=== PATIENT | female | born 1985 | race Caucasian/White ===

== ENCOUNTER 2016-11-28 23:35 | Emergency (ER) | payer SELFPAY ==
[~2016-11-28] VITALS: Ht 162.6 cm; Wt 99.8 kg
[2016-11-29 00:05] VITALS: BP 142/87
--- NOTE | 2016-11-29 00:31 | PHYS DOC ---
Past Medical History Past Medical History: Other Additional Past Medical Histor: ADD Past Surgical History: Cholecystectomy Additional Information: 1 PACK/DAY Alcohol Use: None Drug Use: None Adult General Chief Complaint Chief Complaint: WRIST PAIN HPI HPI Patient is a 31 year old female who presents with right forearm pain starting yesterday. The patient was carrying a laundry basket and hit her arm on an open drawer walking past. She denies any numbness or tingling in the hand. She reports a recent fracture of the ulna in the similar area to her current pain. She took ibuprofen at 1600 today. She does not have a PCP. Review of Systems Review of Systems Constitutional: Denies fever or chills. [] Musculoskeletal: Denies back pain or joint pain. Reports pain and swelling in the right forearm. Integument: Denies rash or skin lesions. Reports abrasion and ecchymosis in the right forearm. Neurologic: Denies focal weakness or sensory changes. [] Current Medications Current Medications Current Medications Medications (Trade) Dose Ordered Sig/[facility] Start Time Stop Time Status Last Admin Dose Admin Ibuprofen (Motrin) 600 mg 1X ONCE 11/29/16 00:45 11/29/16 00:45 DC 11/29/16 00:43 600 MG Allergies Allergies Allergies Coded Allergies Type Severity Reaction Last Updated Verified No Known Drug Allergies 11/28/16 No Physical Exam Physical Exam Constitutional: Well developed, well nourished, no acute distress, non-toxic appearance. [] HENT: Normocephalic, atraumatic, oropharynx moist. [] Eyes: PERRLA, EOMI, conjunctiva normal, no discharge. [] Skin: Warm, dry, no erythema, no rash. Small abrasion and ecchymosis over the right mid forearm on the ulnar side. Extremities: Right mid-forearm arm tenderness, ROM intact, minimal edema. 2+ radial and ulnar pulses. Less than 2 second capillary refill in the fingers. Light touch sensation intact in the fingers. There is no tenderness in the elbow or wrist. Neurologic: Alert and oriented X 3, normal motor function, normal sensory function, no focal deficits noted. [] Psychologic: Affect normal, judgement normal, mood normal. [] Current Patient Data Vital Signs Vital Signs Date Time Temp Pulse Resp B/P Pulse Ox O2 Delivery O2 Flow Rate FiO2 11/29/16 00:05 97.9 70 18 99 Room Air 97.9 EKG EKG [] Radiology/Procedures Radiology/Procedures Two-view x-ray of the right forearm reviewed and interpreted by myself with Dr. Menjivar. There are no acute fractures or dislocations. Course & Med Decision Making Course & Med Decision Making Pertinent Labs and Imaging studies reviewed. (See chart for details) The patient is discharged home with an Hossein wrap. She is instructed to apply ice. She is given contact information for orthopedics for follow-up. Return precautions were discussed. She verbalizes understanding and agrees with plan. Dragon Disclaimer Dragon Disclaimer This electronic medical record was generated, in whole or in part, using a voice recognition dictation system. Departure Departure Impression: Primary Impression: Forearm contusion Disposition: HOME, SELF-CARE Condition: STABLE Referrals: DANIEL LORENZANA MD Patient Instructions: Contusion, [id number] Additional Instructions: There were no broken bones seen on your x-ray. Please wear the provided Hossein wrap to help with pain and swelling. You may apply ice to help decrease pain, swelling, and bruising. Do not apply ice directly to the skin. Please follow-up with the orthopedic doctor listed below if your pain continues. Return to the emergency department if you have any new or concerning symptoms. Problem Qualifiers Primary Impression: Forearm contusion Encounter type: initial encounter Laterality: right Qualified Code: S50.11XA - Contusion of right forearm, initial encounter SP SENA Nov 29, 2016 00:31
[2016-11-29] MEDS ORDERED: IBUPROFEN 600 MG TABLET. PO ONE (00:45)
--- NOTE | 2016-11-29 07:22 | RAD ---
Indication: Pain after hitting forearm on drawer. Technique: 2 views of the right forearm are submitted for review. No comparison is available. Findings: There is no fracture or osseous lesion. There is no soft tissue swelling or radiopaque foreign body. Impression: Negative for fracture.
== END 2016-11-29 00:44 | disposition home or self-care (01) ==
LOC: ER 23:35
DX: S50.11XA Contusion of right forearm, initial encounter (principal); F17.210 Nicotine dependence, cigarettes, uncomplicated; W22.8XXA Striking against or struck by other objects, initial encounter; Y93.89 Activity, other specified; Y92.89 Other specified places as the place of occurrence of the external cause; Y99.8 Other external cause status
CPT/HCPCS: 73090; 99284

== ENCOUNTER 2017-02-06 | Emergency (ER) | payer SELFPAY ==
[2017-02-06 00:08] VITALS: BP 150/82
[2017-02-06] MEDS ORDERED: ONDANSETRON ODT 4 MG TAB.RAPDIS. PO ONE (00:15)
[2017-02-06] MEDS ORDERED: ACETAMINOPHEN 500 MG TABLET PO ONE (00:15)
--- NOTE | 2017-02-06 00:19 | PHYS DOC ---
Past Medical History Past Medical History: Other Additional Past Medical Histor: ADD Past Surgical History: Cholecystectomy Alcohol Use: None Drug Use: None Adult General Chief Complaint Chief Complaint: HEAD INJURY/TRAUMA HPI HPI This is a 31-year-old female who states she fell over a day ago when she slipped on arising and impacted the right occipital portion of her head on a cabinet and then subsequently fell forward and impacted that side again. She states she has a small hematoma to that area. She states she's had persisting headache with some nausea and one episode of vomiting throughout the day. She called into work. She did not take anything today for her headache. She took a dose of ibuprofen last evening with minimal to no relief. Currently, she rates her pain an 8 out of 10 on the pain scale. She also reports mild neck tenderness as well. Patient was placed in a c-collar for C-spine precautions. She does not be appear to be in any distress at this time. She denies any numbness or tingling or weakness in any of her extremities. Review of Systems Review of Systems Constitutional: Denies fever or chills [] Eyes: Denies change in visual acuity, redness, or eye pain [] HENT: Denies nasal congestion or sore throat [] Respiratory: Denies cough or shortness of breath [] Cardiovascular: No additional information not addressed in HPI [] GI: Denies abdominal pain, nausea, vomiting, bloody stools or diarrhea [] : Denies dysuria or hematuria [] Musculoskeletal: Denies back pain or joint pain [] Integument: Denies rash or skin lesions [] Neurologic: Has headache, denies focal weakness or sensory changes [] Endocrine: Denies polyuria or polydipsia [] Current Medications Current Medications Current Medications Medications (Trade) Dose Ordered Sig/[facility] Start Time Stop Time Status Last Admin Dose Admin Acetaminophen (Tylenol) 1,000 mg 1X ONCE 02/06/17 00:15 02/06/17 00:34 DC 02/06/17 00:26 1,000 MG Ondansetron HCl (Zofran Odt) 4 mg 1X ONCE 02/06/17 00:15 02/06/17 00:34 DC 02/06/17 00:26 4 MG Allergies Allergies Allergies Coded Allergies Type Severity Reaction Last Updated Verified No Known Drug Allergies 11/28/16 No Physical Exam Physical Exam Constitutional: Well developed, well nourished, no acute distress, non-toxic appearance. [] HENT: Normocephalic, atraumatic, bilateral external ears normal, oropharynx moist, no oral exudates, nose normal, small right sided occipital hematoma. [] Eyes: PERRLA, EOMI, conjunctiva normal, no discharge. [] Neck: Limited range of motion secondary to pain, mild tenderness, supple, no stridor, c-collar in place. [] Cardiovascular:Heart rate regular rhythm, no murmur [] Lungs & Thorax: Bilateral breath sounds clear to auscultation [] Abdomen: Bowel sounds normal, soft, no tenderness, no masses, no pulsatile masses. [] Skin: Warm, dry, no erythema, no rash. [] Back: No tenderness, no CVA tenderness. [] Extremities: No tenderness, no cyanosis, no clubbing, ROM intact, no edema. [] Neurologic: Alert and oriented X 3, normal motor function, normal sensory function, no focal deficits noted. [] Psychologic: Affect normal, judgement normal, mood normal. [] Current Patient Data Vital Signs Vital Signs Date Time Temp Pulse Resp B/P (MAP) Pulse Ox O2 Delivery O2 Flow Rate FiO2 02/06/17 00:08 98.2 87 18 150/82 (104) 100 Room Air 98.2 Lab Values Laboratory Tests Test 02/05/17 23:24 POC Urine HCG, Qualitative Hcg negative (Negative) EKG EKG [] Radiology/Procedures Radiology/Procedures PROCEDURE CT head without contrast. CT cervical spine without contrast. HISTORY Head and neck pain after a fall TECHNIQUE Exposure: One or more of the following individualized dose reduction techniques were utilized for this exam: 1. Automated exposure control. 2. Adjustment of the mA and/or kV according to patient size. 3. Use of iterative reconstruction technique. [address] imaging skullbase to vertex. Helical noncontrast CT imaging of the cervical spine. COMPARISON No prior FINDINGS CT Head: No intracranial hemorrhage, mass, hydrocephalus or infarction. No acute ischemic changes. Orbits, paranasal sinuses, mastoids and bones are unremarkable. CT cervical spine: Craniocervical junction intact cervical vertebral body height and alignment. No fracture of the cervical spine. The lung apices and paraspinal tissues are unremarkable. IMPRESSION CT Head: No acute intracranial CT abnormality. CT cervical spine: No acute osseous injury of the cervical spine. Electronically signed by: Raman Kelly MD (February 06, 2017 01:05:13) Course & Med Decision Making Course & Med Decision Making Pertinent Labs and Imaging studies reviewed. (See chart for details) This 31-year-old female with significant head injury will have CT imaging to rule out any acute abnormality. A dose of Zofran ODT and Tylenol will be given. If negative, the patient will be safe to be discharged home to follow with her primary care doctor for any persisting headache or concussive type symptoms. On my reassessment, the patient feels improved with Tylenol medications. A CT of her head and neck were negative for any acute abnormalities. I cleared her C- spine clinically. I counseled that she is to avoid any strenuous activitiesthat put her at risk for any future head injuries. A work note will be provided and structures to go home and rest and take Tylenol or Motrin as needed for symptoms. Return precautions were provided and acknowledged by the patient. Dragon Disclaimer Dragon Disclaimer This electronic medical record was generated, in whole or in part, using a voice recognition dictation system. Departure Departure Impression: Primary Impression: Head injury Disposition: 01 HOME, SELF-CARE Admitting Physician: Other Condition: IMPROVED Referrals: NO PCP (PCP) Patient Instructions: Head Injury, Adult, [id number] Additional Instructions: Please rest for the next 24 hours and avoid any strenuous activities that can put you at risk for a head injury. Take tylenol or motrin for your headache. Return to the ER if you develop any worsening of your symptoms. MARICARMEN CASIANO DO February 06, 2017 00:18
--- NOTE | 2017-02-06 01:06 | RAD ---
PROCEDURE CT head without contrast. CT cervical spine without contrast. HISTORY Head and neck pain after a fall TECHNIQUE Exposure: One or more of the following individualized dose reduction techniques were utilized for this exam: 1. Automated exposure control. 2. Adjustment of the mA and/or kV according to patient size. 3. Use of iterative reconstruction technique. [address] imaging skullbase to vertex. Helical noncontrast CT imaging of the cervical spine. COMPARISON No prior FINDINGS CT Head: No intracranial hemorrhage, mass, hydrocephalus or infarction. No acute ischemic changes. Orbits, paranasal sinuses, mastoids and bones are unremarkable. CT cervical spine: Craniocervical junction intact cervical vertebral body height and alignment. No fracture of the cervical spine. The lung apices and paraspinal tissues are unremarkable. IMPRESSION CT Head: No acute intracranial CT abnormality. CT cervical spine: No acute osseous injury of the cervical spine. Electronically signed by: Raman Kelly MD (February 06, 2017 01:05:13)
== END 2017-02-06 01:20 | disposition home or self-care (01) ==
LOC: ER 00:32
DX: S09.90XA Unspecified injury of head, initial encounter (principal); W01.198A Fall on same level from slipping, tripping and stumbling with subsequent striking against other object, initial encounter; Y93.89 Activity, other specified; Y92.89 Other specified places as the place of occurrence of the external cause; Y99.8 Other external cause status
CPT/HCPCS: 70450; 72125; 84703; 99284; Q0162; 81025